=== PATIENT | male | born 1955 | race Caucasian/White ===

== ENCOUNTER → 2017-11-01 | Outpatient (CLI) | payer OTHER ==
[~2017-11-01] VITALS: Ht 180.3 cm; Wt 92.0 kg
[~2017-11-01] MED LIST: ALBU0.63 NEB; ALBU6.7H INH; ALDA50TA2 PO; ATOR20TA15 PO; BACL10TA PO; BUPR150CR PO; CAPS0.1C2 TOPICAL; CHLORHEXIDINE GLUCONATE 2 % 1 PACK (2 CLOTHS) TOPICAL PRN; COUG100S PO; COZA50TA PO; CYMB30CA PO; DEXTROSE 5% IN WATE 1000ML INJ 1,000 ML IV SCH; ECASA81 PO; FAMO20TA2 PO; FOLI1TAB6 PO; FURO1TAB62 PO; LACTATED RINGER'S 1000 ML IV PRN; METO1TAB9 PO; METOPROLOL TARTRATE 25 MG TAB PO PRN; MINO100 PO; MONT10TA2 PO; MORP1TAB24 PO; NITR1SUB3 SL; POVIDONE IODINE 5% (ANTISEPSIS KIT) 4 APPLICATIONS EACH NARE PRN; PROPOFOL 200 MG/20 ML AMP IV ONE; PYRI100T4 PO; SENN8.6T81 PO; SODIUM CHLORID 0.9% 500 ML IV PRN; SYMB160A INH; TRAM50TA PO; TRAZ100T10 PO
[2017-11-01 16:45] VITALS: BP 133/79; PULSE 78; RESP 18; TEMP 98.7; O2SAT 96
--- NOTE | 2017-11-02 14:42 | EKG ---
Date Performed: 11/01/2017 Time Performed: 13:38:27 PTAGE: 62 years EKG: ATRIAL FIBRILLATION MODERATE ST DEPRESSION ABNORMAL ECG Since PREVIOUS TRACING , no significant change noted PREVIOUS TRACIN06/30/2016 13.49 DOCTOR: Bruno Ferreira Interpretating Date/Time 11/02/2017 14:40:13
--- NOTE | 2017-11-03 12:06 | MR ---
cc: ALVARO HESTER DR., DATE: 11/01/2017 PREPROCEDURE DIAGNOSIS Age over 50 without prior screening. Hemoccult positive stools. POSTOPERATIVE DIAGNOSIS: Sigmoid colon polyps. PROCEDURE: Total colonoscopy, polypectomy. ANESTHESIA: Monitored anesthesia care. SURGEON: Dr. Hester. OPERATIVE FINDINGS: This patient was referred to me by Dr. Ward for colonoscopy because of hemoccult positive stools and the fact that he has never had a colonoscopy. He is 62 years old. He has multiple medical problems, however, colonoscopy was done under monitored anesthesia care. He was found to have only two small polyps, probably 3-4 mm in diameter each pedunculated and small at 30 cm and then about 25 cm of the sigmoid colon both of which were removed with cold biopsy forceps. The prep was fair to good. He had some cloudy fluid throughout his colon but a good look was obtained. I did reach the cecum. OPERATIVE TECHNIQUE The patient was placed on the table in the left lateral position, given intravenous monitored anesthesia care and the colonoscope was introduced through the anal canal, taken to the rectum, sigmoid colon, distal colon, transverse colon, ascending colon to the cecum. The ileocecal valve was seen as was the base of the appendix. The scope was sequentially withdrawn, sequentially looking at the mucosa, getting a fairly good look at the mucosa. Although there was a fair amount of cloudy fluid, I was able to aspirate most of that and get a good look. No mass lesions were seen. He did have two small 3-4 millimeter polyps in the lower sigmoid that were removed with biopsy forceps. The scope was eventually withdrawn. The patient tolerated the procedure well and left the GI lab in good condition. He should have repeat colonoscopy in five years time. MD FAYE Kessler/JOSÉ MIGUEL /4:06 PM /11:56 AM
== END ==
LOC: HSDC 12:52
PROVIDERS: ATTEND Colon & Rectal Surgery
DX: D12.7 Benign neoplasm of rectosigmoid junction (principal); R19.5 Other fecal abnormalities; I48.91 Unspecified atrial fibrillation; I11.0 Hypertensive heart disease with heart failure; I50.9 Heart failure, unspecified; J44.9 Chronic obstructive pulmonary disease, unspecified; Z79.82 Long term (current) use of aspirin; Z79.01 Long term (current) use of anticoagulants; Z95.810 Presence of automatic (implantable) cardiac defibrillator
CPT/HCPCS: 88305; 93005